=== PATIENT | female | born 1990 | race Caucasian/White ===

== ENCOUNTER → 2017-12-01 12:02 | Outpatient (CLI) | payer BC, SELFPAY ==
[2017-12-02 16:07] LABS: ANTINUCLEAR ANTIBODIES DIRECT Negative (Negative); Anti-dsDNA Ab 1 IU/mL (0-9)
== END ==
PROVIDERS: Family Provider Family Medicine; PCP Family Medicine; Visit Provider Family Medicine
DX: R52 Pain, unspecified (principal)
CPT/HCPCS: 36415; 86038; 86225

== ENCOUNTER → 2018-01-19 10:44 | Outpatient (CLI) | payer BC, SELFPAY ==
[2018-01-19 12:51] LABS: T4 Free Direct 1.02 ng/dL (0.76-1.46); Thyroid Stim Hormone (TSH) 1.53 uIU/mL (0.358-3.74)
== END ==
PROVIDERS: Family Provider Family Medicine; PCP Family Medicine; Visit Provider Family Medicine
DX: Z13.29 Encounter for screening for other suspected endocrine disorder (principal)
CPT/HCPCS: 36415; 84439; 84443; 84481

== ENCOUNTER → 2018-04-22 15:32 | Outpatient (CLI) | payer BC, SELFPAY ==
[2018-04-22 17:59] LABS: Follicle Stimulating Hormone 5.6 mIU/mL; Luteinizing Hormone 4.6 mIU/mL
[2018-04-26 13:26] LABS: Estrogen, Total, Serum 95 pg/mL (.)
== END ==
PROVIDERS: Family Provider Family Medicine; PCP Family Medicine; Referring Provider Family Medicine; Visit Provider Family Medicine
DX: N92.0 Excessive and frequent menstruation with regular cycle (principal)
CPT/HCPCS: 36415; 82672; 83001; 83002

== ENCOUNTER → 2018-12-05 10:07 | Outpatient (CLI) | payer BC, SELFPAY ==
[2018-12-05 12:28] LABS: Absolute Lymphocyte Count 1.89 X10^3/uL (0.83-4.51); Absolute Neutrophil Count 4.7 X10^3/uL (2.0-7.7); Basophil# 0.01 X10^3/uL; Basophil% 0.1 % (0-1); Eosinophil# 0.08 X10^3/uL; Eosinophils% 1.1 % (0-5); Hematocrit 40.4 % (37-47); Hemoglobin 13.4 g/dL (12.0-15.0); Lymphocyte # 1.89 X10^3/ul (4.0); Lymphocyte % 26.2 % (19-41); Mean Corp Hgb Conc 33.2 g/dL (32-36); Mean Corpuscular Hgb 26.7 pg (27.0-32.0); Mean Corpuscular Volume 80.6 fL (81-99); Mean Platelet Vol. 8.8 fl (6.2-12.0); Monocyte# 0.47 X10^3/uL; Monocyte% 6.5 % (0-10); NRBC Flagged by Analyzer 0 % (0-5); Neutrophil # 4.73 X10^3/uL (2.7-7.7); Neutrophil % 65.5 % (47-70); Platelet Count 288 K/mm3 (150-450); RBC Distribution Width CV 12.4 % (11.6-14.6); RBC Distribution Width SD 35.8 fl (35.1-43.9); Red Blood Count 5.01 M/mm3 (4.2-5.4); White Blood Count 7.2 K/mm3 (4.4-11.0)
[2018-12-05 13:06] LABS: Anion Gap 6 (5-15); BUN 10 mg/dL (7-18); BUN/Creat Ratio 10.8 RATIO (10-20); Calcium,Total 8.6 mg/dL (8.5-10.1); Chloride 108 mmol/L (98-107); Creatinine, Serum 0.93 mg/dL (0.55-1.02); EST Glomerular Filtration Rate 77 mL/min (>60); Est Glom Filt Rate - Afr Amer 93 mL/min (>60); Ferritin 20 ng/mL (8-252); Glucose 95 mg/dL (74-106); Iron 79 ug/dL (50-170); Iron Binding Capacity,Total 404 ug/dL (250-450); Potassium 4.2 mmol/L (3.5-5.1); Sodium Level 137 mmol/L (136-145); Thyroid Stim Hormone (TSH) 1.69 uIU/mL (0.358-3.74)
== END ==
PROVIDERS: Family Provider Family Medicine; PCP Family Medicine; Visit Provider Family Medicine
DX: R00.2 Palpitations (principal)
CPT/HCPCS: 36415; 80048; 82728; 83540; 83550; 84443; 85025

== ENCOUNTER 2018-12-06 16:44 | Emergency (ER) | payer BC, SELFPAY ==
[2018-12-06 16:46] VITALS: BP 110/68; PULSE 75; RESP 14; TEMP 36.8; O2SAT 99; BMI 24.1
--- NOTE | 2018-12-06 16:59 | NURSING ---
NO OLD EKGS
--- NOTE | 2018-12-06 17:11 | EKG12_ITS ---
Test Reason : CP Blood Pressure : / mmHG Vent. Rate : 077 BPM Atrial Rate : 077 BPM P-R Int : 146 ms QRS Dur : 076 ms QT Int : 366 ms P-R-T Axes : 077 083 066 degrees QTc Int : 414 ms Normal sinus rhythm Normal ECG Confirmed by POORNIMA HERNANDEZ ([id number]), market editor PIYUSH WILDER ([id number]) on 12/08/2018 2:27:42 PM Referred By: Confirmed By:POORNIMA HERNANDEZ
--- NOTE | 2018-12-06 17:39 | RAD_ITS ---
STUDY: X-RAY CHEST REASON FOR EXAM: Female, 28 years old. Chest pain TECHNIQUE: Frontal and lateral views of the chest. COMPARISON: None. FINDINGS: The lungs are clear and expanded. There is no demonstrated pleural abnormality. Normal size heart. Normal mediastinum and sukhwinder. Normal visualized pulmonary arteries. Normal visualized aortic arch and descending thoracic aorta. Normal visualized thoracic spine. Normal visualized ribs, clavicles, and shoulders. There is no demonstrated abnormality of the visualized soft tissue structures of the upper abdomen. RAD/Chest PA and Lateral IMPRESSION: Normal x-ray examination of the chest. Electronically Signed: Jayden Henderson MD at 17:54 EDT , Service support ,
--- NOTE | 2018-12-06 17:50 | ED.DCSUM_ITS ---
History of Present Illness Chief Complaint: Chest Pain Detail of Chief Complaint: Tightness and pain Informant: Patient Onset: Days Context: Sudden Onset Timing: Intermittent Quality: Tightness and pain Location: Central chest Current Severity: Mild Maximum Severity: Severe Worsened by: Possibly activity Relieved by: Nothing in particular Associated Symptoms: Mild dyspnea Narrative: Presents because of central chest pain described as tightness. Tightness is preceded by sharp discomfort. She had several episodes yesterday. She has several episodes for the past week. She states that sitting results in improvement of the discomfort. She recently had a Holter monitor. Holter monitor detected many episodes of heart rate greater than 170 at rest. Patient was unaware that her heart was going fast. Patient denies fever, chills or night sweats. She denies recent URI symptoms. She denies weight gain or weight loss. She denies night sweats. She denies ocular, visual auditory symptoms. She denies GI or symptoms. She is presently on hormonal therapy to suppress her menses because of heavy abnormal vaginal bleeding and pain secondary to endometriosis. She had blood work that was obtained as outpatient. They were reviewed. Additional blood work was added today as well as EKG and chest x-ray. Prior similar symptoms: Yes Recent Illness/Hospitalization: No - Past Medical History (1) Tachycardia Status: Acute Past Medical History - Allergies and Home Meds Allergies/Adverse Reactions: Allergies latex Allergy (Verified 12/06/18 16:52) Rash nickel Allergy (Verified 12/06/18 16:52) Rash Sulfa (Sulfonamide Antibiotics) Allergy (Verified 12/06/18 16:52) Rash cats Allergy (Uncoded 12/06/18 16:52) Anaphylaxis Primary Care Physician: Otoniel Fowler MD [Primary Care Provider] - Prior records reviewed: Yes - Viewed lab results, Holter monitor reading unavailable Past Medical History: None Surgical History: no surgical history Lives: Spouse/ Significant Other Smoking Status: Never smoker Alcohol: Rare Drugs: None Review of Systems General: Denies: Chills, Fever, Malaise, Subjective, Sweats, Weight loss Eyes: Denies: Visual changes - bilaterally, Diplopia ENT: Denies: Rhinorrhea, Sore throat Cardiovascular: Reports: Chest pain, Palpitations. Denies: Heart racing Respiratory: Reports: Dyspnea. Denies: Dyspnea on exertion, Orthopnea, Paroxysmal nocturnal dyspnea Gastrointestinal: Denies: Abdominal pain, Nausea, Vomiting, Diarrhea, Melena, Hematochezia Genitourinary: Denies: Dysuria, Hematuria, Frequency Musculoskeletal: Denies: Back pain, Extremity Pain Skin: Denies: Rash, Wounds Neurological: Denies: Headache, Weakness, Numbness Hematologic: Denies: Easy bruising, Easy bleeding Allergy: Denies: Uticaria, Swelling of the mouth Physical Exam Vital Signs/Narrative: Vital Signs Temp Pulse Resp BP Pulse Ox 12/06/18 16:46 98.3 F 75 14 110/68 99 Inital Vital Signs reviewed: Yes General: Well nourished, Well developed, No Acute Distress Head: Normocephalic, Atraumatic Eyes: Perrl, EOMI ENT: Moist mucous membranes, No rhinorrhea Neck: Supple, Nontender, No lymphadenopathy, No JVD Cardiovascular: Regular rate, Regular rhythm, No murmurs, Normal S1, Normal S2 Respiratory: No distress, CTA bilaterally, Chest nontender Abdomen: Soft, Nontender, Nondistended, Normal bowel sounds Back: Nontender, Normal Inspection Extremities: Nontender, No edema Skin: Normal color, No rash Neurological: Alert, Oriented x3, Cranial nerves II-XII grossly intact, Normal Strength, Normal Sensation Psychological: Normal affect, Normal Mood Diagnostic/Tx/Re-eval Chest X-Ray - ED: 2 View, Read by ED Physician, Normal, Heart, Lungs, Mediastinum, Bony Structures, No Acute Disease, Chronic Changes Impressions Chest X-Ray 12/06/18 17:39 IMPRESSION: Normal x-ray examination of the chest. Electronically Signed: Jayden Henderson MD at 17:54 EDT , Service support , 12/06/18 17:39 Chest PA and Lateral [RAD] Stat Laboratory Results 12/06/18 17:30 Troponin I < 0.015 With normal troponin and symptoms that started approximate 1 week ago and heart score of 0 or 1 depending if one would assess this to be moderately suspicious chest pain. Since score is less than 3 she is safe to go home with a normal EKG and a normal troponin. - Rhythm Strip Rhythm Strip: Sinus Rhythm - EKG 75 Interpretation: Sinus Rhythm - Ventricular rate is 77. The EKG is completely normal. [place] interval is 146 ms, QRS duration 76 ms, QT duration 366 ms and axis is normal. - Medical Decision Making EKG was obtained to determine if there is any evidence of changes suggest preexcitation syndrome. Also to evaluate for ischemia. Since she has had multiple episodes of chest tightness with dyspnea over the past week a troponin was added. Chest x-ray was obtained to assess for pulmonary etiology of her symptoms. With a normal troponin and EKG and low heart score patient was discharged to home. She has an appointment follow-up with cardiology for narrow complex tachycardia with documented heart rate to 170+. ED Disposition - Plan for ED Patient: Disposition: Home or Assisted Living Diagnosis: Central chest pain Instructions: CHEST PAIN, Uncertain Cause, Pat (P.A.T.) Referrals: Otoniel Fowler MD [Primary Care Provider] - As Needed Additional Instructions: Keep appointment with railroad switchman
[2018-12-06 18:00] VITALS: BP 100/60; PULSE 74; RESP 20; O2SAT 98
[2018-12-06 18:51] VITALS: BP 109/63; PULSE 74; RESP 13; O2SAT 97
== END 2018-12-06 18:58 | disposition home or self-care (01) ==
PROVIDERS: Emergency Provider Emergency Medicine; Family Provider Family Medicine; PCP Family Medicine
DX: R07.9 Chest pain, unspecified (principal)
CPT/HCPCS: 71046; 84484; 93005; 99284; A4216

== ENCOUNTER → 2018-12-12 06:49 | Outpatient (CLI) | payer BC, SELFPAY ==
[2018-12-09 10:50] VITALS: BMI 24.3
[2018-12-12 07:39] LABS: AST(SGOT) 15 U/L (15-37); Alanine Aminotransfer ALT/SGPT 18 U/L (13-56); Albumin, Serum 3.3 g/dL (3.2-5.0); Alkaline Phosphatase 53 U/L (45-117); Cholesterol 167 mg/dL (200); Globulin 3.7 g/dL (2.2-4.2); High Density Lipoprotein 62 mg/dL; Triglycerides 166 mg/dL; Very Low Density Lipoprotein 33 mg/dL (5-40)
== END ==
PROVIDERS: Family Provider Family Medicine; PCP Family Medicine; Referring Provider Internal Medicine Cardiovascular Disease; Visit Provider Internal Medicine Cardiovascular Disease
DX: Z13.220 Encounter for screening for lipoid disorders (principal)
CPT/HCPCS: 36415; 80061; 80076

== ENCOUNTER → 2018-12-20 14:22 | Outpatient (CLI) | payer BC, SELFPAY ==
[2018-12-09 10:50] VITALS: BMI 24.3
--- NOTE | 2018-12-20 14:23 | ECHOD_ITS ---
Reason For Study: CHEST PAIN Procedure This was a 2D Doppler, Color Flow transthoracic echocardiogram. Exam performed in department. Left Ventricle Normal size and thickness. The estimated ejection fraction is 65 %. Normal diastology for age. No regional wall motion abnormalities noted. Right Ventricle Normal size and thickness. Normal systolic function. Atria Normal left atrium. Normal right atrium. Normal atrial septum. Mitral Valve The mitral valve is structurally normal. No prolapse or stenosis seen. Tricuspid Valve Normal tricuspid valve. Trivial tricuspid valve insufficiency. Right ventricular systolic pressure estimated to be 27 mmHg. Aortic Valve Normal aortic valve. Trisinus/trileaflet aortic valve. Pulmonic Valve Normal pulmonic valve. Trivial pulmonic valve insufficiency. Great Vessels Normal aortic root. Normal arch. Normal inferior vena cava. Inferior vena cava collapse with sniff. Pericardium/Pleural No pericardial effusion. MMode/2D Measurements & Calculations LVIDd: 3.7 cm IVSd: 0.80 cm Ao root diam: 2.5 cm LVIDs: 2.6 cm LVPWd: 0.82 cm RVDd: 3.3 cm FS: 29.4 % LAV(MOD-bp): 35.5 ml LVAd ap4: 28.6 cm2 SV(MOD-sp4): 46.5 ml LAV(MOD-bp) Indexed: 20.6 ml/m2 EDV(MOD-sp4): 74.8 ml LAV(MOD-sp2): 28.6 ml EDV(sp4-el): 78.5 ml LAV(MOD-sp4): 34.1 ml LVAs ap4: 16.0 cm2 ESV(MOD-sp4): 28.2 ml ESV(sp4-el): 29.2 ml EF(MOD-sp4): 62.2 % EF(sp4-el): 62.9 % SV(sp4-el): 49.4 ml LA A4 area: 14.4 cm2 LA dimension(2D): 2.6 cm RA A4 area: 11.6 cm2 Time Measurements MV dec time: 0.21 sec Doppler Measurements & Calculations MV E max bijan: 117.4 cm/sec Lat Peak E' Bijan: 21.3 cm/sec Med Peak E' Bijan: 14.5 cm/sec MV A max bijan: 36.7 cm/sec E/E' lat: 5.5 E/E' med: 8.1 MV E/A: 3.2 Ao V2 max: 139.1 cm/sec LV V1 max: 117.7 cm/sec PA V2 max: 121.2 cm/sec Ao max P.7 mmHg LV V1 max P.5 mmHg PI end-d bijan: 79.2 cm/sec TR max bijan: 233.4 cm/sec TR max P.9 mmHg Interpretation Summary The estimated ejection fraction is 65 %. Normal diastology for age. Trivial tricuspid valve insufficiency. Right ventricular systolic pressure estimated to be 27 mmHg. There is no comparison study available. Ordering Physician: Chuck Ross Referring Physician: ALEXANDER LEBRON Performed By: Sara Neville, SRINATH, RVT
== END ==
PROVIDERS: Family Provider Family Medicine; PCP Family Medicine; Referring Provider Internal Medicine Cardiovascular Disease; Visit Provider Internal Medicine Cardiovascular Disease
DX: R07.9 Chest pain, unspecified (principal); R00.0 Tachycardia, unspecified; R20.2 Paresthesia of skin
CPT/HCPCS: 93306

== ENCOUNTER → 2018-12-27 10:05 | Outpatient (CLI) | payer BC, SELFPAY ==
[2018-12-09 10:50] VITALS: BMI 24.3
--- NOTE | 2018-12-27 10:07 | STE_ITS ---
Reason For Study: CHEST PAIN Stress Results Protocol: Farzad Protocol Maximum Predicted HR: 192 bpm Target HR: 163 bpm % Maximum Predicted HR: 89 % DurationHeart Rate Stage (mm:ss) (bpm) BP Comment BASELINE 72 102/72 STAGE 1 3:00 116 128/70 STAGE 2 3:00 133 118/60 STAGE 3 3:00 166 133/62 STAGE 4 2:00 171 / LEGS CRAMPING/SOB RECOVERY 99 112/56 Stress Duration: 11:00 mm:ss Maximum Stress HR: 171 bpm Baseline Echocardiogram Findings The estimated ejection fraction is 65 %. Stress Echo Wall motion Data Resting WM Intermediate WM Stress WM Resting Wall Motion Wall Motion Stress No regional wall motion No regional wall motion abnormalities noted. abnormalities noted. EKG Data The baseline ECG displays normal sinus rhythm. The patient exercised according to the regular Farzad protocol for a total duration of 11:00. The maximum heart rate attained was 179 beats per minute. This was 93% of maximum predicted heart rate. The patient exercised into stage 4 of the Farzad protocol. During stress, there were no ST or T wave changes noted to suggest ischemia. No clinical angina was noted. No arrhythmias noted. Interpretation Summary The estimated ejection fraction is 65 %. Normal, adequate, treadmill echocardiogram. Negative for ischemia by EKG and echocardiographic criteria. No anginal symptoms noted. No arrhythmias noted. Appropriate blood pressure response to exercise. Average exercise capacity for age. Test terminated due to the attainment of target heart rate and leg discomfort. Final LVEF is 75%. No complications. Ordering Physician: Chuck Ross Referring Physician: Chuck Ross Performed By: Crystal Maxwell RDCS
== END ==
PROVIDERS: Family Provider Family Medicine; PCP Family Medicine; Referring Provider Internal Medicine Cardiovascular Disease; Visit Provider Internal Medicine Cardiovascular Disease
DX: R07.9 Chest pain, unspecified (principal); R00.0 Tachycardia, unspecified; R20.2 Paresthesia of skin
CPT/HCPCS: 93017; 93350

== ENCOUNTER → 2020-04-17 15:47 | Outpatient (CLI) | payer BC, SELFPAY ==
[2019-06-22 10:37] VITALS: BMI 24.4
[2020-04-17 17:47] LABS: Absolute Lymphocyte Count 2.03 X10^3/uL (0.83-4.51); Basophil# 0.02 X10^3/uL; Basophil% 0.3 % (0-1); Eosinophil# 0.12 X10^3/uL; Eosinophils% 1.5 % (0-5); Hemoglobin 12.4 g/dL (12.0-15.0); Lymphocyte # 2.03 X10^3/ul (4.0); Lymphocyte % 25.9 % (19-41); Mean Corp Hgb Conc 31.8 g/dL (32-36); Mean Corpuscular Hgb 25.6 pg (27.0-32.0); Mean Corpuscular Volume 80.4 fL (81-99); Mean Platelet Vol. 8.8 fl (6.2-12.0); Monocyte# 0.67 X10^3/uL; Monocyte% 8.6 % (0-10); NRBC Flagged by Analyzer 0 % (0-5); Neutrophil # 4.96 X10^3/uL (2.7-7.7); Neutrophil % 63.3 % (47-70); Platelet Count 322 K/mm3 (150-450); RBC Distribution Width CV 12.6 % (11.6-14.6); RBC Distribution Width SD 36.4 fl (35.1-43.9); Red Blood Count 4.85 M/mm3 (4.2-5.4); White Blood Count 7.8 K/mm3 (4.4-11.0)
[2020-04-17 18:06] LABS: ALB/GLOB Ratio 1.2 RATIO (0.9-2.4); AST(SGOT) 17 U/L (15-37); Alanine Aminotransfer ALT/SGPT 21 U/L (13-56); Albumin, Serum 3.9 g/dL (3.2-5.0); Alkaline Phosphatase 69 U/L (45-117); Anion Gap 4 (5-15); BUN 10 mg/dL (7-18); BUN/Creat Ratio 13.1 RATIO (10-20); Calcium,Total 8.4 mg/dL (8.5-10.1); Chloride 109 mmol/L (98-107); Creatinine, Serum 0.76 mg/dL (0.55-1.02); EST Glomerular Filtration Rate 95 mL/min (>60); Est Glom Filt Rate - Afr Amer 115 mL/min (>60); Globulin 3.3 g/dL (2.2-4.2); Glucose 78 mg/dL (74-106); Protein, Total 7.2 g/dL (6.4-8.2); Sodium Level 139 mmol/L (136-145)
[2020-04-17 18:41] LABS: Hemoglobin A1c 5.4 % (3.8-5.6)
[2020-04-23 03:06] LABS: Beef <0.10 kU/L (Class 0); Corn <0.10 kU/L (Class 0); Egg, Whole <0.10 kU/L (Class 0); Milk (Cow) <0.10 kU/L (Class 0); Peanut <0.10 kU/L (Class 0); Pork <0.10 kU/L (Class 0); Soybean <0.10 kU/L (Class 0); Wheat <0.10 kU/L (Class 0)
[2020-04-23 09:15] LABS: Chocolate <0.10 kU/L (Class 0)
== END ==
PROVIDERS: PCP Family Medicine; Referring Provider Family Medicine; Visit Provider Family Medicine
DX: R11.0 Nausea (principal); E16.2 Hypoglycemia, unspecified; Z91.018 Allergy to other foods
CPT/HCPCS: 36415; 80053; 83036; 85025; 86003; 86005

== ENCOUNTER → 2020-09-02 | Outpatient (CLI) | payer OTHER, SELFPAY ==
[2019-06-22 10:37] VITALS: BMI 24.4
== END | disposition home or self-care (01) ==
LOC: MFPLAB 14:54 → LABSPEC 14:55
PROVIDERS: PCP Family Medicine; Referring Provider Family Medicine; Visit Provider Family Medicine
DX: Z20.822 Contact with and (suspected) exposure to COVID-19 (principal)
CPT/HCPCS: 87635; U0002

== ENCOUNTER → 2020-10-01 09:48 | Outpatient (CLI) | payer OTHER, SELFPAY ==
[2019-06-22 10:37] VITALS: BMI 24.4
[2020-10-01 11:06] LABS: Glucose GTT- Fasting 96 mg/dL (74-106)
[2020-10-01 11:07] LABS: Glucose GTT-30 minutes 144 mg/dL (110-170)
[2020-10-01 11:43] LABS: Glucose GTT- 1 Hour 131 mg/dL (120-170)
[2020-10-01 12:50] LABS: Glucose GTT- 2 Hour 96 mg/dL (70-120)
[2020-10-01 14:00] LABS: Glucose GTT- 3 Hour 75 mg/dL (74-106)
== END ==
PROVIDERS: PCP Family Medicine; Referring Provider Family Medicine; Visit Provider Family Medicine
DX: E16.2 Hypoglycemia, unspecified (principal)
CPT/HCPCS: 36415; 82951; 82952

== ENCOUNTER → 2021-01-20 14:41 | Outpatient (CLI) | payer OTHER, SELFPAY ==
[2021-01-20 17:40] LABS: Absolute Lymphocyte Count 1.98 X10^3/uL (0.83-4.51); Absolute Neutrophil Count 5.2 X10^3/uL (2.0-7.7); Basophil# 0.02 X10^3/uL; Basophil% 0.2 % (0-1); Eosinophil# 0.16 X10^3/uL; Hematocrit 36.7 % (37-47); Hemoglobin 12.1 g/dL (12.0-15.0); Lymphocyte # 1.98 X10^3/ul (0.83-4.51); Lymphocyte % 24.7 % (19-41); Mean Corpuscular Hgb 26.5 pg (27.0-32.0); Mean Corpuscular Volume 80.5 fL (81-99); Mean Platelet Vol. 9.1 fl (6.2-12.0); Monocyte% 7.5 % (0-10); NRBC Flagged by Analyzer 0 % (0-5); Neutrophil # 5.24 X10^3/uL (2.7-7.7); Neutrophil % 65.4 % (47-70); Platelet Count 312 K/mm3 (150-450); RBC Distribution Width CV 12.7 % (11.6-14.6); RBC Distribution Width SD 36.2 fl (35.1-43.9); Red Blood Count 4.56 M/mm3 (4.2-5.4)
== END ==
PROVIDERS: Nurse Practitioner Family; PCP Family Medicine; Visit Provider Family Medicine
DX: R23.3 Spontaneous ecchymoses (principal)
CPT/HCPCS: 36415; 85025

== ENCOUNTER → 2021-01-29 09:26 | Outpatient (CLI) | payer OTHER, SELFPAY ==
[2021-01-29 10:12] LABS: Absolute Lymphocyte Count 2.09 X10^3/uL (0.83-4.51); Absolute Neutrophil Count 3.1 X10^3/uL (2.0-7.7); Basophil# 0.02 X10^3/uL; Basophil% 0.4 % (0-1); Eosinophil# 0.12 X10^3/uL; Eosinophils% 2.1 % (0-5); Hematocrit 37.9 % (37-47); Hemoglobin 12.5 g/dL (12.0-15.0); Lymphocyte # 2.09 X10^3/ul (0.83-4.51); Lymphocyte % 36.6 % (19-41); Mean Corpuscular Hgb 26.5 pg (27.0-32.0); Mean Corpuscular Volume 80.3 fL (81-99); Monocyte# 0.41 X10^3/uL; Monocyte% 7.2 % (0-10); NRBC Flagged by Analyzer 0 % (0-5); Neutrophil # 3.05 X10^3/uL (2.7-7.7); Neutrophil % 53.3 % (47-70); Platelet Count 275 K/mm3 (150-450); RBC Distribution Width CV 12.5 % (11.6-14.6); Red Blood Count 4.72 M/mm3 (4.2-5.4); White Blood Count 5.7 K/mm3 (4.4-11.0)
[2021-01-29 10:35] LABS: AST(SGOT) 21 U/L (15-37); Alanine Aminotransfer ALT/SGPT 24 U/L (13-56); Albumin, Serum 3.7 g/dL (3.2-5.0); Alkaline Phosphatase 65 U/L (45-117); Anion Gap 7 (5-15); BUN 17 mg/dL (7-18); BUN/Creat Ratio 22.4 RATIO (10-20); Calcium,Total 8.8 mg/dL (8.5-10.1); Chloride 108 mmol/L (98-107); Creatinine, Serum 0.76 mg/dL (0.55-1.02); EST Glomerular Filtration Rate 95 mL/min (>60); Est Glom Filt Rate - Afr Amer 115 mL/min (>60); Globulin 3.6 g/dL (2.2-4.2); Glucose 94 mg/dL (74-106); Potassium 4.1 mmol/L (3.5-5.1); Protein, Total 7.3 g/dL (6.4-8.2); Sodium Level 139 mmol/L (136-145)
[2021-01-29 11:29] LABS: Internal QC Validated? YES +Cl - CLEAR BKGD; Monotest Negative (Negative)
== END ==
PROVIDERS: PCP Family Medicine; Referring Provider Family Medicine; Visit Provider Family Medicine
DX: R23.3 Spontaneous ecchymoses (principal)
CPT/HCPCS: 36415; 80053; 85025; 86308

== ENCOUNTER → 2021-03-11 14:39 | Outpatient (CLI) | payer OTHER, SELFPAY ==
[2021-03-11 17:47] LABS: Absolute Lymphocyte Count 2.58 X10^3/uL (0.83-4.51); Absolute Neutrophil Count 4.8 X10^3/uL (2.0-7.7); Basophil# 0.02 X10^3/uL; Basophil% 0.2 % (0-1); Eosinophil# 0.07 X10^3/uL; Eosinophils% 0.9 % (0-5); Hematocrit 38.9 % (37-47); Hemoglobin 12.8 g/dL (12.0-15.0); Lymphocyte # 2.58 X10^3/ul (0.83-4.51); Mean Corp Hgb Conc 32.9 g/dL (32-36); Mean Corpuscular Hgb 26.7 pg (27.0-32.0); Mean Platelet Vol. 9.2 fl (6.2-12.0); Monocyte# 0.56 X10^3/uL; NRBC Flagged by Analyzer 0 % (0-5); Neutrophil # 4.79 X10^3/uL (2.7-7.7); Neutrophil % 59.5 % (47-70); Platelet Count 302 K/mm3 (150-450); RBC Distribution Width CV 12.9 % (11.6-14.6); RBC Distribution Width SD 37.7 fl (35.1-43.9); White Blood Count 8.1 K/mm3 (4.4-11.0)
[2021-03-11 18:04] LABS: ALB/GLOB Ratio 1.1 RATIO (0.9-2.4); AST(SGOT) 18 U/L (15-37); Alanine Aminotransfer ALT/SGPT 28 U/L (13-56); Albumin, Serum 4.1 g/dL (3.2-5.0); Alkaline Phosphatase 59 U/L (45-117); Anion Gap 7 (5-15); BUN 9 mg/dL (7-18); BUN/Creat Ratio 10.8 RATIO (10-20); CRP < 2.90 mg/L (0.0-3.0); Calcium,Total 8.9 mg/dL (8.5-10.1); Chloride 107 mmol/L (98-107); Creatinine, Serum 0.84 mg/dL (0.55-1.02); EST Glomerular Filtration Rate 85 mL/min (>60); Est Glom Filt Rate - Afr Amer 103 mL/min (>60); Globulin 3.8 g/dL (2.2-4.2); Glucose 79 mg/dL (74-106); Potassium 3.6 mmol/L (3.5-5.1); Protein, Total 7.9 g/dL (6.4-8.2); Rheumatoid Factor < 10.0 IU/mL (<15); Sodium Level 136 mmol/L (136-145)
[2021-03-11 18:25] LABS: Erythrocyte Sedimentation Rate 8 mm/hr (0-30)
[2021-03-12 10:33] LABS: Hepatitis B Surface Antibody Reactive; Hepatitis B Surface Antigen Non-Reactive (Nonreactive); Hepatitis C Antibody Non-Reactive (Nonreactive)
[2021-03-14 07:43] LABS: CCP IgG Antibodies 4 units (0-19)
[2021-03-14 09:31] LABS: ANTINUCLEAR ANTIBODIES DIRECT Negative (Negative)
== END ==
PROVIDERS: PCP Family Medicine; Referring Provider Family Medicine; Visit Provider Internal Medicine Rheumatology
DX: M06.4 Inflammatory polyarthropathy (principal); M35.7 Hypermobility syndrome; J45.909 Unspecified asthma, uncomplicated; I34.1 Nonrheumatic mitral (valve) prolapse; R51.9 Headache, unspecified
CPT/HCPCS: 36415; 80053; 85025; 85652; 86038; 86140; 86200; 86431; 86706; 86803; 87340

== ENCOUNTER 2021-07-31 16:47 | Outpatient (CLI) | payer BC, SELFPAY | END 2021-07-31 23:59 | disposition home or self-care (01) | LOC: CT 16:48 | PROVIDERS: PCP Family Medicine; Visit Provider Family Medicine | DX: R69 Illness, unspecified (principal) ==

== ENCOUNTER 2021-07-31 17:24 | Emergency (ER) | payer BC, SELFPAY ==
[2021-07-31 17:25] VITALS: BP 135/75; PULSE 80; RESP 15; TEMP 37; O2SAT 98; BMI 24.2
--- NOTE | 2021-07-31 17:45 | EDS_ITS ---
HPI HPI - GI History of Present Illness Chief Complaint: Abd Pain Detail of Chief Complaint: Right lower quadrant abdominal pain Informant: patient Abdominal Pain/Flank Pain Onset: Today (0700) Context: Sudden Onset Timing: Continuous Quality: Aching Location: RLQ Current Severity: Mild Maximum Severity: Moderate Worsened by: Car ride and - (Right position and walking) Relieved by: Nothing Nausea/Vomiting/Emesis GI Symptom: Positive for Nausea; Negative for Vomiting Diarrhea/Melena/Hematochezia GI Symptom: Negative for Diarrhea, Melena and Hematochezia Associated Symptoms Associated Symptoms: Negative for Dysuria, Frequency, Hematuria and Urgency LMP: Status post hysterectomy Narrative Narrative: Patient is a 30-year-old female status post hysterectomy who presents with right lower quadrant abdominal pain that started at 0700. She states she had a bagel with cheese. She is eating slightly less than normal. The other reason she ate was that she was going to walk with her . She does report subjective fever and chills. She denies headache, visual, ocular auditory symptoms. She denies cardiac or respiratory symptoms. She denies dysuria, frequency, urgency or hematuria. She has had no recent viral type symptoms. Prior similar symptoms: No Recent Illness/Hospitalization: No PFSH PFSH Medical History Chest pain Dysmenorrhea treated with oral contraceptive Endometriosis Episode of heavy vaginal bleeding Paresthesia of arm Tachycardia Home Medications NK 07/31/21 [History Last Taken Unknown] Allergy/AdvReac Type Severity Reaction Status Date / Time latex Allergy Rash Verified 07/31/21 17:27 nickel Allergy Rash Verified 07/31/21 17:27 Sulfa (Sulfonamide Allergy Rash Verified 07/31/21 17:27 Antibiotics) diltiazem AdvReac Intermediate Dizziness Verified 07/31/21 17:27 and leg swelling cats Allergy Anaphylaxis Uncoded 07/31/21 17:27 Family History Mother Hypertension Mitral valve prolapse Surgical History H/O lumpectomy History of arthroscopic knee surgery Status post laparoscopic hysterectomy (12/2018) Social History (Updated 07/31/21 @ 17:[address] Polo Magallanes MD) household members: spouse Smoking Status: Never smoker substance use type: does not use ROS ROS ED Constitutional Constitutional ED: Reports chills, fever(s) and subjective; Denies sweats or weight loss ENT ENT ED: Denies ear pain, rhinorrhea or sore throat Cardiovascular Cardiovascular: Denies chest pain, palpitations or racing heartbeat Respiratory/Chest Respiratory/Chest: Denies cough, dyspnea or dyspnea on exertion Gastrointestinal Gastrointestinal: Reports abdominal pain and nausea; Denies constipation, diarrhea, melena or vomiting Genitourinary Genitourinary ED: Denies dysuria, hematuria or urinary frequency Musculoskeletal Musculoskeletal: Denies arthralgias, back pain, myalgias or neck pain Integumentary Denies rash Neurologic Neurologic: Denies paresthesias or weakness Hematologic/Lymphatic Hematologic/Lymphatic: Denies easy bleeding or easy bruising EXAM Physical Exam Const Vital Signs: 07/31/21 17:25 Temperature 98.6 F Temperature Source Temporal Pulse Rate 80 Respiratory Rate 15 Blood Pressure 135/75 H Blood Pressure Mean 95 Pulse Ox 98 Oxygen Delivery Method Room Air Positive well nourished and well developed General Appearance ED: well developed and NAD; Negative for pallor HEENT Reports moist mucous membranes HEENT Narrative: Nares patent. Ears normal. normocephalic and atraumatic Eyes PERRL and EOMs intact bilaterally General Eye ED: Negative for pale conjunctiva or scleral icterus Neck no lymphadenopathy, supple and no JVD Resp normal respiratory effort and clear to auscultation bilaterally Cardio regular rate, regular rhythm, S1 normal heart sound, S2 normal heart sound and no murmurs GI non-distended and no masses; Negative for non-tender Inspection: Negative for abdominal distention Auscultation: Negative for normoactive bowel sounds, hyperactive bowel sounds or hypoactive bowel sounds Palpation: soft, tender RLQ and McBurney's point and guarding RLQ; Negative for rigid, hepatomegaly, splenomegaly, hernia, mass, pulsatile mass or rebound tenderness present Back/Spine no CVA tenderness Lumbar Spine / Lower Back: Negative for lumbar spinal tenderness Extremity full ROM General Extremety ED: Negative for edema or tenderness General Extremity: Negative for edema Neuro CN's II-XII intact bilaterally and no sensory deficits noted Sensorium / Orientation: alert, oriented to person, oriented to place and oriented to time Motor Exam: strength 5/5 throughout Psych mental status grossly normal and thought process normal Skin no wounds General Skin Exam: Negative for jaundice or pallor Lesions: no lesions Rashes: no rashes MDM MDM MDM Narrative Medical decision making narrative: Patient with right lower quadrant pain need to evaluate for appendicitis versus other cause. Doubt gynecologic/ovaries. W ith no viral symptoms doubt mesenteric adenitis. With no history of diarrhea doubt inflammatory bowel disorder. Patient was offered pain medicine and antiemetic which she declined. Patient was seen walking to the restroom. She is holding her lower abdomen because of discomfort. I again asked patient if she would like something for pain. She acknowledged she would. 4 mg of morphine and 4 mg of Zofran was ordered. Lab Data Attestation: I reviewed the patient's lab results. Lab results narrative: White count is upper end of normal. There is no shift. Electrolyte panels marked for mild hypokalemia. Labs: Laboratory Results - last 24 hr 07/31/21 07/31/21 17:50 17:50 WBC 10.4 RBC 4.83 Hgb 12.8 Hct 38.3 MCV 79.3 L MCH 26.5 L MCHC 33.4 RDW Std Deviation 35.8 RDW Coeff of Mary 12.5 Plt Count 293 MPV 8.6 Immature Gran % (Auto) 0.300 Neut % (Auto) 66.0 Lymph % (Auto) 25.7 Corson % (Auto) 6.6 Eos % (Auto) 1.2 Baso % (Auto) 0.2 Absolute Neuts (auto) 6.9 Absolute Lymphs (auto) 2.68 Nucleated RBC % 0 Sodium 137 Potassium 3.3 L Chloride 108 H Carbon Dioxide 22.0 Anion Gap 7 BUN 13 Creatinine 0.75 Estim Creat Clear Calc 102.68 Est GFR (MDRD) Af Amer 116 Est GFR (MDRD) Non-Af 96 BUN/Creatinine Ratio 17.3 Glucose 93 Calcium 9.1 Radiography Diagnostic Testing: Clinical Impression(s) from Imaging Studies Abdomen/Pelvis CT 07/31/21 18:[address] of the abdomen pelvis with IV contrast and p.o. contrast reveals a 4.5 x 2.9 right ovarian hemorrhagic cyst. Patient has been given appropriate home- going instructions. Case was discussed with her scientist propagator Dr. Rubi Lin. She agrees with plan. Discharge Plan Triage Chief Complaint: Abd Pain ED Provider: Polo Magallanes Dx/Rx/DC Orders Clinical Impression: Hemorrhagic cyst of right ovary, Abdominal pain, acute, right lower quadrant Instructions: ED Ovarian Cyst Prescriptions: No Action NK RF: 0 Primary Care Provider: Otoniel Fowler Referrals: Katelyn Martinez MD [STAFF PHYSICIAN] - 3-5 Days (Call office tomorrow to be seen next week) Otoniel Fowler MD [Primary Care Provider] - Activity Restrictions/Additional Instructions: 1. If your pain becomes significantly worse contact Dr. Pam Angulo or return to the emergency department 2. If you develop right shoulder pain when you are lying flat return to the emergency department 3. If you develop lightheadedness when you stand or believe you look pale return immediately, call 911 Disposition Disposition: Home, Self Care
[2021-07-31 18:01] LABS: Absolute Lymphocyte Count 2.68 X10^3/uL (0.83-4.51); Absolute Neutrophil Count 6.9 X10^3/uL (2.0-7.7); Basophil# 0.02 X10^3/uL; Basophil% 0.2 % (0-1); Eosinophil# 0.13 X10^3/uL; Eosinophils% 1.2 % (0-5); Hematocrit 38.3 % (37-47); Hemoglobin 12.8 g/dL (12.0-15.0); Lymphocyte # 2.68 X10^3/ul (0.83-4.51); Lymphocyte % 25.7 % (19-41); Mean Corp Hgb Conc 33.4 g/dL (32-36); Mean Corpuscular Hgb 26.5 pg (27.0-32.0); Mean Corpuscular Volume 79.3 fL (81-99); Mean Platelet Vol. 8.6 fl (6.2-12.0); Monocyte# 0.69 X10^3/uL; Monocyte% 6.6 % (0-10); NRBC Flagged by Analyzer 0 % (0-5); Neutrophil # 6.87 X10^3/uL (2.7-7.7); Platelet Count 293 K/mm3 (150-450); RBC Distribution Width CV 12.5 % (11.6-14.6); RBC Distribution Width SD 35.8 fl (35.1-43.9); Red Blood Count 4.83 M/mm3 (4.2-5.4); White Blood Count 10.4 K/mm3 (4.4-11.0)
--- NOTE | 2021-07-31 18:14 | CT_ITS ---
STUDY: CT Abdomen And Pelvis W/ Contrast Injection 07/31/2021 7:08 PM REASON FOR EXAM: Female, 30 years old. ABDOMINAL PAIN Right lower quadrant abdominal pain evaluate for a -- IV PO Contrast TECHNIQUE: Transaxial images were obtained without oral contrast, and with IV 100mL [id number] intravenous contrast. Individualized dose optimization techniques were used for this CT. COMPARISON: Jun 29 2016 6:32pm . FINDINGS: The visualized lung bases are unremarkable. The visualized portions of the heart are within normal limits. Normal liver. Normal gallbladder and extrahepatic biliary system. Normal spleen. Normal pancreas. Normal bilateral adrenal glands. No acute findings of the right kidney. No acute findings of the left kidney. Normal visualized stomach. Normal small intestine. Stool throughout the colon. There is non-visualization of the appendix. There are no acute findings of the abdominal aorta. Normal inferior vena cava. Subcentimeter mesenteric lymph nodes. Normal urinary bladder. There is absence of the uterus consistent with a prior hysterectomy. Hemorrhagic right ovarian cyst. There is an umbilical hernia containing fat. Normal osseous structures. IMPRESSION: (NOT LISTED IN ORDER OF SIGNIFICANCE) There are no acute findings. Other findings as above. Electronically Signed: Perez Tee MD at 19:11 EDT , CT/Abdomen/Pelvis WITH Contrast
[2021-07-31 18:16] LABS: Anion Gap 7 (5-15); BUN 13 mg/dL (7-18); BUN/Creat Ratio 17.3 RATIO (10-20); Calcium,Total 9.1 mg/dL (8.5-10.1); Chloride 108 mmol/L (98-107); Creatinine, Serum 0.75 mg/dL (0.55-1.02); EST Glomerular Filtration Rate 96 mL/min (>60); Est Glom Filt Rate - Afr Amer 116 mL/min (>60); Estimated Creatinine Clearance 102.68 ml/min; Glucose 93 mg/dL (74-106); Potassium 3.3 mmol/L (3.5-5.1); Sodium Level 137 mmol/L (136-145)
[2021-07-31] MEDS: Morphine 4 MG/ML Syringe IV (18:27)
[2021-07-31] MEDS: Ondansetron 4 MG/2 ML Vial IV (18:27)
[2021-07-31 20:34] VITALS: RESP 16
== END 2021-07-31 20:34 | disposition home or self-care (01) ==
PROVIDERS: Emergency Provider Emergency Medicine; PCP Family Medicine; Visit Provider Emergency Medicine
DX: N83.201 Unspecified ovarian cyst, right side (principal); R10.31 Right lower quadrant pain; Z90.710 Acquired absence of both cervix and uterus
CPT/HCPCS: 74177; 80048; 85025; 96374; 96375; 99282; Q9967; A4216; J2405

== ENCOUNTER 2021-08-02 20:08 | Emergency (ER) | payer BC, SELFPAY ==
[2021-08-02 20:09] VITALS: BP 111/73; PULSE 103; RESP 16; TEMP 36.4; O2SAT 100; BMI 23.6
--- NOTE | 2021-08-02 20:24 | EKG12_ITS ---
Test Reason : DIZZINESS Blood Pressure : / mmHG Vent. Rate : 079 BPM Atrial Rate : 079 BPM P-R Int : 140 ms QRS Dur : 076 ms QT Int : 360 ms P-R-T Axes : 080 082 072 degrees QTc Int : 412 ms Normal sinus rhythm Septal infarct , age undetermined , cannot be excluded Abnormal ECG Confirmed by SANTIAGO REEVES, ALEXANDER ([id number]), industrial editor RYAN ERAZO ([id number]) on 08/06/2021 11:21:58 AM Referred By: LUIS Confirmed By:ALEXANDER HENDERSON MD
--- NOTE | 2021-08-02 20:27 | US_ITS ---
STUDY: ULTRASOUND PELVIC COMPLETE CLINICAL: Female, 30 years old. HEMORRHAGIC CYST ON CT ON 07/31, RECURRENT PAIN WITH DIZZINESS AND NAUSEA. S/P HYSTERECTOMY 2 YEARS AGO. TECHNIQUE: Transabdominal and Transvaginal COMPARISON: CT 07/31/2021 FINDINGS: Hysterectomy. Right ovary is not visualized, likely obscured by bowel gas. Normal left ovary, measuring 1.6 x 3.1 x 1.2 cm. There are multiple follicles without a dominant cyst. There is no free fluid in the pelvis. US/Transvaginal Non- IMPRESSION: Hysterectomy. Nonvisualized right ovary. Unremarkable left ovary. No pelvic free fluid. Electronically Signed: Nii Blake MD ([place]) at 21:58 EDT ,
[2021-08-02 20:41] VITALS: BP 101/63; PULSE 76; RESP 12; O2SAT 100
[2021-08-02 20:45] VITALS: BP 101/56; BP 107/66; BP 118/63
[2021-08-02 20:54] LABS: Absolute Neutrophil Count 4.8 X10^3/uL (2.0-7.7); Basophil# 0.03 X10^3/uL; Basophil% 0.3 % (0-1); Eosinophil# 0.22 X10^3/uL; Eosinophils% 2.5 % (0-5); Hematocrit 38.3 % (37-47); Hemoglobin 12.8 g/dL (12.0-15.0); Lymphocyte % 33.7 % (19-41); Mean Corp Hgb Conc 33.4 g/dL (32-36); Mean Corpuscular Hgb 26.8 pg (27.0-32.0); Mean Corpuscular Volume 80.1 fL (81-99); Mean Platelet Vol. 8.3 fl (6.2-12.0); Monocyte# 0.82 X10^3/uL; Monocyte% 9.2 % (0-10); NRBC Flagged by Analyzer 0 % (0-5); Neutrophil # 4.79 X10^3/uL (2.7-7.7); Platelet Count 281 K/mm3 (150-450); RBC Distribution Width CV 12.4 % (11.6-14.6); RBC Distribution Width SD 35.8 fl (35.1-43.9); Red Blood Count 4.78 M/mm3 (4.2-5.4); White Blood Count 8.9 K/mm3 (4.4-11.0)
[2021-08-02 21:16] LABS: Anion Gap 4 (5-15); BUN 13 mg/dL (7-18); BUN/Creat Ratio 17.3 RATIO (10-20); Calcium,Total 8.9 mg/dL (8.5-10.1); Chloride 109 mmol/L (98-107); Creatinine, Serum 0.75 mg/dL (0.55-1.02); EST Glomerular Filtration Rate 96 mL/min (>60); Est Glom Filt Rate - Afr Amer 116 mL/min (>60); Estimated Creatinine Clearance 102.68 ml/min; Glucose 128 mg/dL (74-106); Potassium 3.6 mmol/L (3.5-5.1); Sodium Level 140 mmol/L (136-145)
--- NOTE | 2021-08-02 22:09 | EDS_ITS ---
HPI History of Present Illness Chief Complaint: Dizziness Informant: patient Onset/Context/Timing Onset: Days Context: Gradual Onset Timing: Continuous Location: Pelvic Worsened by: Nothing Relieved by: Nothing Associated Symptoms Associated Symptoms: Dizziness, pain radiates to R shoulder Narrative Narrative: Pt seen in ED 2 days ago, diagnosed with a 4.5x2.9cm R hemorrhagic ovarian cyst. Follows with Dr. Landon and has a remote history of a hysterectomy for excessive bleeding. Spoke with Dr. Vang yesterday and the plan is for an on Wednesday. Presents now for dizziness and pain radiating to R shoulder. Prior similar symptoms: No Recent Illness/Hospitalization: No PFSH PFSH Medical History Chest pain Dysmenorrhea treated with oral contraceptive Endometriosis Episode of heavy vaginal bleeding Paresthesia of arm Tachycardia Home Medications NK 07/31/21 [History Last Taken Unknown] Allergy/AdvReac Type Severity Reaction Status Date / Time latex Allergy Rash Verified 08/02/21 20:09 nickel Allergy Rash Verified 08/02/21 20:09 Sulfa (Sulfonamide Allergy Rash Verified 08/02/21 20:09 Antibiotics) diltiazem AdvReac Intermediate Dizziness Verified 08/02/21 20:09 and leg swelling cats Allergy Anaphylaxis Uncoded 08/02/21 20:09 Family History Mother Hypertension Mitral valve prolapse Surgical History H/O lumpectomy History of arthroscopic knee surgery Status post laparoscopic hysterectomy (12/2018) Social History (Updated 07/31/21 @ 17:[address] Polo Magallanes MD) household members: spouse Smoking Status: Never smoker substance use type: does not use ROS ROS ED Constitutional Constitutional ED: Denies fever(s) Eyes Eyes: Denies change in vision ENT ENT ED: Denies ear pain Cardiovascular Cardiovascular: Denies chest pain Respiratory/Chest Respiratory/Chest: Denies dyspnea Gastrointestinal Gastrointestinal: Reports abdominal pain Genitourinary Genitourinary ED: Denies dysuria Musculoskeletal Musculoskeletal: Denies myalgias Integumentary Denies rash Neurologic Neurologic: Denies headache(s) Psychiatric Psychiatric: Denies depression Endocrine Endocrinology: Denies polyuria Allergic/Immunologic Allergic/Immunologic ED: Denies urticaria EXAM Physical Exam Const Vital Signs: 08/02/21 20:09 08/02/21 20:41 08/02/21 20:45 Temperature 97.6 F L Temperature Source Temporal Pulse Rate 103 H 76 Respiratory Rate 16 12 Blood Pressure 111/73 101/63 Blood Pressure [Lying] 101/56 L Blood Pressure [Sitting (for 1 minute prior to obtaining)] 118/63 Blood Pressure [Standing (for 1 minute prior to obtaining)] 107/66 Blood Pressure Mean 85 75 Blood Pressure Mean [Lying] 71 Blood Pressure Mean [Sitting (for 1 minute prior to obtaining)] 81 Blood Pressure Mean [Standing (for 1 minute prior to obtaining)] 79 Pulse Ox 100 100 Oxygen Delivery Method Room Air Positive well nourished and well developed General Appearance ED: well developed HEENT Negative for trauma Eyes EOMs intact bilaterally Resp normal respiratory effort Cardio regular rate GI normal to inspection, nondistended, normoactive bowel sounds and non-tender Palpation: soft Back/Spine no CVA tenderness Extremity normal to inspection Neuro oriented x3 Sensorium / Orientation: alert Psych mental status grossly normal Skin no rashes or lesions noted MDM MDM MDM Narrative Medical decision making narrative: ECG shows SR at a rate of 79. No sign of ischemia or infarction. Read by me. Orthostatics negative per nursing. Labs stable, as below. US limited. Ovary not visualized due to bowel. No significant free fluid. Discussed with Dr. Villela, patient will follow up in the office. Discharge in stable condition. Impression #1 R ovary hemorrhagic cyst Impression #2 dizziness Lab Data Attestation: I reviewed the patient's lab results. Labs: Laboratory Results - last 24 hr 08/02/21 08/02/21 20:38 20:38 WBC 8.9 RBC 4.78 Hgb 12.8 Hct 38.3 MCV 80.1 L MCH 26.8 L MCHC 33.4 RDW Std Deviation 35.8 RDW Coeff of Mary 12.4 Plt Count 281 MPV 8.3 Immature Gran % (Auto) 0.300 Neut % (Auto) 54.0 Lymph % (Auto) 33.7 [place] % (Auto) 9.2 Eos % (Auto) 2.5 Baso % (Auto) 0.3 Absolute Neuts (auto) 4.8 Absolute Lymphs (auto) 3.00 Nucleated RBC % 0 Sodium 140 Potassium 3.6 Chloride 109 H Carbon Dioxide 27.0 Anion Gap 4 L BUN 13 Creatinine 0.75 Estim Creat Clear Calc 102.68 Est GFR (MDRD) Af Amer 116 Est GFR (MDRD) Non-Af 96 BUN/Creatinine Ratio 17.3 Glucose 128 H Calcium 8.9 Radiography Diagnostic Testing: Clinical Impression(s) from Imaging Studies Transvaginal US 08/02/21 20:27 IMPRESSION: Hysterectomy. Nonvisualized right ovary. Unremarkable left ovary. No pelvic free fluid. Electronically Signed: Nii Blake MD (Bro[place]) at 21:58 EDT Reading Location ID and State: [facility] / [place] , Service support , Discharge Plan Triage Chief Complaint: Dizziness ED Provider: Chuck Aguirre Dx/Rx/DC Orders Instructions: ED Ovarian Cyst Prescriptions: No Action NK RF: 0 Primary Care Provider: Otoniel Fowler Referrals: Ktaelyn Martinez MD [STAFF PHYSICIAN] - Disposition Disposition: Home, Self Care
[2021-08-02 22:21] VITALS: BP 104/79; PULSE 78; RESP 17; O2SAT 99
== END 2021-08-02 22:22 | disposition home or self-care (01) ==
PROVIDERS: Emergency Provider Emergency Medicine; PCP Family Medicine; Visit Provider Emergency Medicine
DX: N83.201 Unspecified ovarian cyst, right side (principal); R42 Dizziness and giddiness; Z90.710 Acquired absence of both cervix and uterus
CPT/HCPCS: 76830; 80048; 85025; 93005; 99284; A4216

== ENCOUNTER → 2021-09-23 | Outpatient (CLI) | payer BC, SELFPAY ==
[2021-09-23 17:15] LABS: Anion Gap 5 (5-15); BUN 12 mg/dL (7-18); BUN/Creat Ratio 13.1 RATIO (10-20); Calcium,Total 9.1 mg/dL (8.5-10.1); Chloride 109 mmol/L (98-107); Creatinine, Serum 0.92 mg/dL (0.55-1.02); EST Glomerular Filtration Rate 76 mL/min (>60); Est Glom Filt Rate - Afr Amer 92 mL/min (>60); Free T3 2.5 pg/mL (2.18-3.98); Glucose 89 mg/dL (74-106); Magnesium 1.8 mg/dL (1.6-2.6); Potassium 3.8 mmol/L (3.5-5.1); Sodium Level 139 mmol/L (136-145); T4 Free Direct 1.08 ng/dL (0.76-1.46); Thyroid Stim Hormone (TSH) 1.22 uIU/mL (0.358-3.74)
== END | disposition home or self-care (01) ==
LOC: LAB 16:12
PROVIDERS: PCP Family Medicine; Referring Provider Physician Assistant Medical; Visit Provider Physician Assistant Medical
DX: R00.0 Tachycardia, unspecified (principal); R00.2 Palpitations; I34.1 Nonrheumatic mitral (valve) prolapse
CPT/HCPCS: 36415; 80048; 83735; 84439; 84443; 84481

== ENCOUNTER → 2021-11-06 | Outpatient (CLI) | payer BC, SELFPAY ==
[2021-11-06 12:10] LABS: Erythrocyte Sedimentation Rate 9 mm/hr (0-30)
[2021-11-06 12:40] LABS: CRP < 2.90 mg/L (0.0-3.0)
[2021-11-09 00:02] LABS: ANTINUCLEAR ANTIBODIES DIRECT Negative (Negative)
== END | disposition home or self-care (01) ==
LOC: MFPLAB 10:04
PROVIDERS: PCP Family Medicine; Referring Provider Family Medicine; Visit Provider Family Medicine
DX: M79.643 Pain in unspecified hand (principal)
CPT/HCPCS: 36415; 85652; 86038; 86140

== ENCOUNTER → 2021-12-10 | Outpatient (CLI) | payer BC, SELFPAY ==
[2021-12-10 08:43] LABS: Lyme Ab Screen Interpretation REF LAB
[2021-12-12 11:30] LABS: Lyme Scn Total Ab w/Rflx Negative (Negative)
== END | disposition home or self-care (01) ==
LOC: MFPLAB 08:40
PROVIDERS: PCP Family Medicine; Referring Provider Family Medicine; Visit Provider Family Medicine
DX: M25.50 Pain in unspecified joint (principal)
CPT/HCPCS: 36415; 86618

== ENCOUNTER → 2022-05-28 | Outpatient (CLI) | payer BC, SELFPAY ==
--- NOTE | 2022-05-28 09:47 | MRI_ITS ---
EXAM: MR RIGHT LOWER EXTREMITY WITHOUT INTRAVENOUS CONTRAST, KNEE CLINICAL INDICATION: MEDIAL MENISCUS TEAR TECHNIQUE: Multiplanar and multisequence MR images of the right knee without intravenous contrast. This report was created using baseclick report [employer] technology. COMPARISON: None. FINDINGS: BONES/JOINTS: Unremarkable. No fracture. No abnormal bone marrow signal. No synovial hypertrophy. No intra-articular body. EXTENSOR MECHANISM: Unremarkable. MEDIAL MENISCUS: Unremarkable. LATERAL MENISCUS: Unremarkable. MEDIAL CAPSULE/SUPPORTING STRUCTURES: Unremarkable. Intact. LATERAL CAPSULE/SUPPORTING STRUCTURES: Unremarkable. Lateral collateral ligamentous complex, inclusive of the popliteal tendon, are intact. ANTERIOR CRUCIATE LIGAMENT: Unremarkable. Intact. POSTERIOR CRUCIATE LIGAMENT: Unremarkable. Intact. MUSCLES: Unremarkable. CARTILAGE: Unremarkable. Intact. FLUID: Unremarkable. No joint effusion. OTHER SOFT TISSUES: Unremarkable. No popliteal cyst. MRI/Lower Ext Joint Only (Routine) IMPRESSION: Normal right knee MRI. Electronically Signed: Ganesh Celestin MD at 21:18 EST ,
== END | disposition home or self-care (01) ==
PROVIDERS: PCP Family Medicine; Referring Provider Physician Assistant Surgical; Visit Provider Physician Assistant Surgical
DX: S83.241A Other tear of medial meniscus, current injury, right knee, initial encounter (principal); X58.XXXA Exposure to other specified factors, initial encounter
CPT/HCPCS: 73721

== ENCOUNTER → 2022-08-06 | Outpatient (CLI) | payer BC, SELFPAY ==
--- NOTE | 2022-08-06 | LES_PTH ---
PATIENT: LEA ADAMS LOC: [facility] U#:[id number] AGE/SX: 31/F ROOM: RE08/06/[address]: Dr. Otoniel Fowler MD : 1990 BED: DIS: 08/06/2022 SPEC #: [id number] RECD: 08/06/22 17:55 STATUS: KOLBY TIWARI #: [id number] DAYO: 08/06/22 00:[address]: Otoniel Fowler DEPT: SURGICAL PATHOLOGY RECD BY: Dejuan Fofana Tissues: Skin of arm Procedures: Special Stain Group I Surgery Specimen Level IV GMS Stain (control) HEADER OPERATION: Skin punch biopsy PRE-OP DIAGNOSIS: Left arm lesion TISSUE SUBMITTED: Left arm MICROSCOPIC DIAGNOSIS Skin lesion of left arm, punch biopsy: Mild nonspecific interface and superficial dermal chronic dermatitis. See comment. AM:temo 08/10/2022 COMMENT Chronic inflammation is noted in the perivascular spaces and adjacent to hair follicles. There is also a very mil interface dermatitis. The inflammation consists primarily of lymphocytes. Plasma and eosinophils are insignificant. GMS stain with matched control for fungal organisms is negative. A squamoid or pigmented lesion is not identified. Immunohistochemistry ([id number]) supports the above diagnosis. Case has been reviewed in consultation with Dr. Amaro who concurs with the above diagnosis. IDC:SASKIA MICROSCOPIC DESCRIPTION Slides are reviewed. GROSS DESCRIPTION Received in fixative is one container labeled with the patient's name and designated left arm. The specimen consists of a punch biopsy of hope-white skin measuring 0.3 cm in diameter and 0.2 cm in length. The specimen is totally submitted in one cassette. / SASKIA:temo 08/07/2022 TC:3 CPT: 66759, 93595
--- NOTE | 2022-08-06 | IMM_PTH ---
PATIENT: LEA ADAMS LOC: [facility] U#:[id number] AGE/SX: 31/F ROOM: RE08/06/[address]: Dr. Otoniel Fowler MD : 1990 BED: DIS: 08/06/2022 SPEC #: [id number] RECD: 08/10/22 13:52 STATUS: KOLBY KARIE #: [id number] DAYO: 08/06/22 00:[address]: Otoniel Fowler DEPT: IMMUNOHISTOCHEMISTRY RECD BY: Abimbola Clifton Tissues: Skin of arm Procedures: Pankeratin (add) S100 (initial) PHYSICIAN & INSTITUTION [place] [id number] SPECIMEN INFORMATION: Tissue Source: Left arm lesion Clinical Info: Left arm lesion Specimen Number: [id number] CPT code: 75615, 03676 METHODOLOGY: Deparaffinized sections of prefer/formalin-fixed tissue or PAP/DQ stained slides are incubated with monoclonal/polyclonal antibodies/oligonucleotide probes. Localization is made via biotin free immunoperoxidase method. Appropriate controls are performed and reacted as expected. Results on target cell population are indicated in the following table: RESULTS: ANTIBODY / CLONE RESULT S-100 (4C4.9) negative AE1-3 (AE1/AE3/PCK26) negative These tests were developed and their performance characteristics determined by [facility]. They may not have been cleared or approved by the U.S. Food and Drug Administration. The FDA has determined that such clearance or approval is not necessary. The above immunohistochemical/dualISH markers are ordered and reviewed by the Pathologist. INTERPRETATION: Skin of left arm, punch biopsy: No evidence of epithelial neoplasm. AM:temo 08/11/2022
== END | disposition home or self-care (01) ==
PROVIDERS: PCP Family Medicine; Referring Provider Family Medicine; Visit Provider Family Medicine
DX: L30.9 Dermatitis, unspecified (principal)
CPT/HCPCS: 88305; 88312; 88341; 88342

== ENCOUNTER 2022-12-07 09:40 | Emergency (ER) | payer BC, SELFPAY ==
[2022-12-07 09:42] VITALS: BP 139/77; PULSE 70; RESP 14; TEMP 36.6; O2SAT 100; BMI 24.2
--- NOTE | 2022-12-07 10:02 | EKG12_ITS ---
Test Reason : PALPS Blood Pressure : / mmHG Vent. Rate : 075 BPM Atrial Rate : 075 BPM P-R Int : 148 ms QRS Dur : 076 ms QT Int : 360 ms P-R-T Axes : 051 069 067 degrees QTc Int : 402 ms Normal sinus rhythm with sinus arrhythmia Septal infarct (cited on or before 02-AUG-2021) Abnormal ECG Confirmed by RAVINDER MURILLO ([id number]), newspaper editor LULU RICHARDS ([id number]) on 12/12/2022 9:26:24 AM Referred By: ALEXYS/AMINAH Confirmed By:RAVINDER MURILLO
[2022-12-07 10:12] LABS: Absolute Lymphocyte Count 2.32 X10^3/uL (0.83-4.51); Absolute Neutrophil Count 4.2 X10^3/uL (2.0-7.7); Basophil# 0.03 X10^3/uL; Basophil% 0.4 % (0-1); Eosinophil# 0.15 X10^3/uL; Eosinophils% 2.1 % (0-5); Hematocrit 39.6 % (37-47); Lymphocyte # 2.32 X10^3/ul (0.83-4.51); Mean Corp Hgb Conc 32.8 g/dL (32-36); Mean Corpuscular Hgb 26.9 pg (27.0-32.0); Mean Platelet Vol. 8.4 fl (6.2-12.0); Monocyte# 0.54 X10^3/uL; Monocyte% 7.5 % (0-10); NRBC Flagged by Analyzer 0 % (0-5); Neutrophil # 4.18 X10^3/uL (2.7-7.7); Neutrophil % 57.7 % (47-70); Platelet Count 292 K/mm3 (150-450); RBC Distribution Width CV 12.3 % (11.6-14.6); RBC Distribution Width SD 36.7 fl (35.1-43.9); Red Blood Count 4.83 M/mm3 (4.2-5.4); White Blood Count 7.2 K/mm3 (4.4-11.0)
--- NOTE | 2022-12-07 10:15 | RAD_ITS ---
STUDY: X-RAY CHEST REASON FOR EXAM: Female, 32 years old. Chest pain and palpitations. TECHNIQUE: PA and lateral views of the chest. COMPARISON: Comparison is made with prior study December 06, 2018. FINDINGS: EKG electrodes are seen. The lungs are clear and expanded. There is no demonstrated pleural abnormality. Normal size heart. Normal mediastinum and sukhwinder. Normal visualized pulmonary arteries. Normal visualized aortic arch and descending thoracic aorta. Normal visualized thoracic spine. Normal visualized ribs, clavicles, and shoulders. There is no demonstrated abnormality of the visualized soft tissue structures of the upper abdomen. RAD/Chest PA and Lateral IMPRESSION: Normal x-ray examination of the chest. Electronically Signed: Jaspal Minaya MD at 10:32 EDT ,
[2022-12-07 10:29] LABS: Anion Gap 3 (5-15); BUN 15 mg/dL (7-18); BUN/Creat Ratio 18.2 RATIO (10-20); Calcium,Total 8.5 mg/dL (8.5-10.1); Chloride 110 mmol/L (98-107); Creatinine, Serum 0.82 mg/dL (0.55-1.02); EST Glomerular Filtration Rate 86 mL/min (>60); Est Glom Filt Rate - Afr Amer 104 mL/min (>60); Estimated Creatinine Clearance 88.63 ml/min; Glucose 99 mg/dL (74-106); Potassium 4.2 mmol/L (3.5-5.1); Sodium Level 140 mmol/L (136-145); Troponin-I HS < 3 pg/mL (3.0-54.0)
[2022-12-07 10:32] LABS: BNP,B-Type NATRIURETIC PEPTIDE 30.2 pg/mL (0-100)
--- NOTE | 2022-12-07 10:35 | ED.VIS.CHEST ---
HPI History of Present Illness Chief Complaint: Palpitations Informant: patient Narrative Narrative: Patient presents after an episode of palpitations that lasted for about 10 minutes yesterday. She states for the past week, she has been having brief 1 minute or so episodes of nondescript not well localized chest discomfort along with some brief palpitations, she has had this off-and-on since she was a child that she associates with her mitral valve prolapse for which she is on no medications. She has not seen anyone at the [facility] for some time and intends on making a follow-up appointment. She states yesterday she started feeling shaky like her blood sugar was low, and then a little while after that she had this episode while she was simply folding laundry that felt like her heart was racing and pounding and made her feel lightheaded she sat down to avoid passing out. She had chest discomfort at the same time and tingling in her jaw with it. It all abated spontaneously, but she has felt shaky ever since and that continues this morning. She denies any dyspnea. She states her feet have been a little swollen lately which I cannot appreciate objectively, but she states this is abnormal for her. [facility] Medical History (Updated 12/07/22 @ 10:[address] Isak Castro MD) Chest pain Dysmenorrhea treated with oral contraceptive Endometriosis Episode of heavy vaginal bleeding MVP (mitral valve prolapse) Paresthesia of arm Tachycardia Home Medications metoprolol tartrate 25 mg tablet 12.5 mg (1/2 x 25 mg) PO BID #30 tabs 12/07/22 [Rx Last Taken Unknown] Allergy/AdvReac Type Severity Reaction Status Date / Time cat dander [cats] Allergy Severe Anaphylaxis Verified 12/07/22 09:42 latex Allergy Rash Verified 12/07/22 09:42 nickel Allergy Rash Verified 12/07/22 09:42 Sulfa (Sulfonamide Allergy Rash Verified 12/07/22 09:42 Antibiotics) diltiazem AdvReac Intermediate Dizziness Verified 12/07/22 09:42 and leg swelling Family History Mother Hypertension Mitral valve prolapse Surgical History H/O lumpectomy History of arthroscopic knee surgery Status post laparoscopic hysterectomy (12/2018) Social History household members: spouse Smoking Status: Never smoker alcohol intake: never substance use type: does not use caffeine: Yes Type: coffee Number of servings: 1 ROS ROS ED Constitutional Constitutional ED: Reports malaise; Denies chills or fever(s) Eyes Eyes: Denies change in vision or diplopia ENT ENT ED: Denies rhinorrhea or sore throat Cardiovascular Cardiovascular: Reports as per HPI, chest pain, leg edema, palpitations and racing heartbeat Respiratory/Chest Respiratory/Chest: Denies cough or dyspnea Gastrointestinal Gastrointestinal: Denies abdominal pain, diarrhea, nausea or vomiting Genitourinary Genitourinary ED: Denies dysuria or hematuria Musculoskeletal Musculoskeletal: Denies back pain or neck pain Integumentary Denies abscess or rash Neurologic Neurologic: Denies headache(s), paresthesias or weakness Psychiatric Psychiatric: Denies anxiety or suicidal thoughts EXAM Physical Exam Const Vital Signs: 12/07/22 09:42 12/07/22 09:51 12/07/22 09:51 Temperature 97.8 F Temperature Source Temporal Pulse Rate 70 Respiratory Rate 14 Respiratory Effort Normal Respiratory Pattern Normal Blood Pressure 139/77 H Blood Pressure Mean 97 Pulse Ox 100 Oxygen Delivery Method Room Air Room Air 12/07/22 09:51 Temperature Temperature Source Pulse Rate Respiratory Rate Respiratory Effort Respiratory Pattern Normal Blood Pressure Blood Pressure Mean Pulse Ox Oxygen Delivery Method Positive well nourished and well developed General Appearance ED: well developed and NAD HEENT Reports moist mucous membranes normocephalic and atraumatic Eyes PERRL and EOMs intact bilaterally Neck full ROM and supple Resp normal respiratory effort and clear to auscultation bilaterally Cardio regular rate, regular rhythm and no murmurs Rate: Negative for tachycardic Peripheral Pulses: pulses 2+ throughout GI non-tender and non-distended Auscultation: normoactive bowel sounds Palpation: soft Back/Spine no CVA tenderness General Back: other FROM Extremity normal to inspection and no calf tenderness General Extremety ED: Negative for edema, pulses abnormal or tenderness General Extremity: Negative for edema or pulses abnormal Neuro oriented x3, CN's II-XII intact bilaterally and no sensory deficits noted Sensorium / Orientation: awake and alert Motor Exam: strength 5/5 throughout Psych mental status grossly normal Skin no rashes or lesions noted and no wounds Heart Score History: Moderately Suspicious ECG: Normal Age: </= 45 years Risk Factors: No Risk Factors Troponin: </= Normal Limit Score: 1 MDM MDM MDM Narrative Medical decision making narrative: Patient without palpitations right now, her vital signs are normal, her rhythm is normal and her EKG is normal. Her troponin returns less than the lower limit of normal. I do not think this needs to be repeated since she had an episode of palpitations yesterday and not this morning. Also given the edema and low likelihood of acute cardiomyopathy, I obtained a BNP, it is low/normal, confirming that she does not have acute congestive heart failure causing the swelling. The rest of her blood tests are normal. I think she can be seen as an outpatient, I discussed with cardiology who agrees it would be reasonable to put her on a low-dose beta-naveen and have her follow-up as an outpatient for reevaluation and repeat echo. Lab Data Attestation: I reviewed the patient's lab results. Labs: Laboratory Results - last 24 hr 12/07/22 09:55 WBC 7.2 RBC 4.83 Hgb 13.0 Hct 39.6 MCV 82.0 MCH 26.9 L MCHC 32.8 RDW Std Deviation 36.7 RDW Coeff of Mary 12.3 Plt Count 292 MPV 8.4 Immature Gran % (Auto) 0.300 Neut % (Auto) 57.7 Lymph % (Auto) 32.0 [place] % (Auto) 7.5 Eos % (Auto) 2.1 Baso % (Auto) 0.4 Absolute Neuts (auto) 4.2 Absolute Lymphs (auto) 2.32 Nucleated RBC % 0 Sodium 140 Potassium 4.2 Chloride 110 H Carbon Dioxide 27.0 Anion Gap 3 L BUN 15 Creatinine 0.82 Estim Creat Clear Calc 88.63 Est GFR (MDRD) Af Amer 104 Est GFR (MDRD) Non-Af 86 BUN/Creatinine Ratio 18.2 Glucose 99 Calcium 8.5 Troponin I High Sens < 3 L B-Natriuretic Peptide 30.2 Radiography Diagnostic Testing: Clinical Impression(s) from Imaging Studies Chest X-Ray 12/07/22 10:15 IMPRESSION: Normal x-ray examination of the chest. Electronically Signed: Jaspal Minaya MD at 10:32 EDT , Rhythm Strip Rhythm Strip: Sinus Rhythm Rate: 70 Ectopy: None EKG Initial EKG: Attestation: I personally reviewed and interpreted this EKG as follows: Interpretation: Sinus Rhythm and No Acute Injury Pattern Comments: Normal EKG. No ectopy. Management Discussion w/another healthcare provider: [employer] ([employer]) Discharge Plan Triage Chief Complaint: Palpitations ED Provider: Isak Castro Dx/Rx/DC Orders Clinical Impression: Palpitations, Chest pain, MVP (mitral valve prolapse) Instructions: ED Mitral Valve Prolapse, ED Palpitations Prescriptions: New metoprolol tartrate 25 mg tablet 12.5 mg PO BID Qty: 30 0RF Primary Care Provider: Otoniel Fowler Referrals: Tan Caban MD [Med Staff - Active Staff] - As soon as possible (call for appt with first available provider) Otoniel Fowler MD [Primary Care Provider] - Disposition Disposition: Home, Self Care
[2022-12-07 11:24] VITALS: BP 98/54; PULSE 70; RESP 18; O2SAT 99
[2022-12-07] MEDS: Metoprolol Tartrate 25 MG Tablet 12.5 MG PO (11:35)
== END 2022-12-07 11:46 | disposition home or self-care (01) ==
LOC: ED 10:50
PROVIDERS: Emergency Provider Emergency Medicine; PCP Family Medicine; Visit Provider Emergency Medicine
DX: R00.2 Palpitations (principal); R07.9 Chest pain, unspecified; I34.1 Nonrheumatic mitral (valve) prolapse
CPT/HCPCS: 71046; 80048; 83880; 84484; 85025; 93005; 99285; A4216

== ENCOUNTER → 2024-02-23 | Outpatient (CLI) | payer BC, SELFPAY ==
[2024-02-23 15:10] LABS: Absolute Lymphocyte Count 2.13 X10^3/uL (0.83-4.51); Absolute Neutrophil Count 6.6 X10^3/uL (2.0-7.7); Basophil# 0.03 X10^3/uL; Basophil% 0.3 % (0-1); Eosinophil# 0.13 X10^3/uL; Eosinophils% 1.3 % (0-5); Hematocrit 36.9 % (37-47); Hemoglobin 12.2 g/dL (12.0-15.0); Lymphocyte # 2.13 X10^3/ul (0.83-4.51); Lymphocyte % 21.6 % (19-41); Mean Corp Hgb Conc 33.1 g/dL (32-36); Mean Corpuscular Volume 81.6 fL (81-99); Mean Platelet Vol. 8.9 fl (6.2-12.0); Monocyte# 0.86 X10^3/uL; Monocyte% 8.7 % (0-10); NRBC Flagged by Analyzer 0 % (0-5); Neutrophil # 6.63 X10^3/uL (2.7-7.7); Neutrophil % 67.5 % (47-70); Platelet Count 257 K/mm3 (150-450); RBC Distribution Width CV 12.9 % (11.6-14.6); RBC Distribution Width SD 38.2 fl (35.1-43.9); Red Blood Count 4.52 M/mm3 (4.2-5.4); White Blood Count 9.8 K/mm3 (4.4-11.0)
[2024-02-23 15:59] LABS: Free T3 2.1 pg/mL (2.18-3.98); T4 Free Direct 1.11 ng/dL (0.76-1.46)
== END | disposition home or self-care (01) ==
LOC: LAB 14:08
PROVIDERS: PCP Family Medicine; Referring Provider Student in an Organized Health Care Education/Training Program; Visit Provider Student in an Organized Health Care Education/Training Program
DX: K22.9 Disease of esophagus, unspecified (principal)
CPT/HCPCS: 36415; 84439; 84443; 84481; 85025

== ENCOUNTER → 2024-08-30 | Outpatient (CLI) | payer OTHER, SELFPAY ==
[2024-08-30 18:22] LABS: Anion Gap 11 (5-15); BUN 11 mg/dL (4-19); BUN/Creat Ratio 11.8 RATIO (10-20); Calcium,Total 9.3 mg/dL (7.6-11.0); Carbon Dioxide 21.7 mmol/L (21.0-32.0); Chloride 106 mmol/L (98-108); Creatinine, Serum 0.89 mg/dL (0.70-1.20); EST Glomerular Filtration Rate 88 (>60); Glucose 79 mg/dL (70-99); Sodium Level 139 mmol/L (133-145)
== END | disposition home or self-care (01) ==
LOC: MFPLAB 15:36
PROVIDERS: PCP Family Medicine; Referring Provider Family Medicine; Visit Provider Family Medicine
DX: N64.52 Nipple discharge (principal)
CPT/HCPCS: 36415; 80048; 84146; 84443